=== PATIENT | male | born 1970 | race Two or more races ===

== ENCOUNTER 2022-02-07 13:49 | Emergency (ER) | payer MEDICAID ==
[~2022-02-07] VITALS: Ht 180.3 cm; Wt 73.9 kg
[~2022-02-07 13:49] MED LIST: AMLO-496 PO; COMIH INH; CYCL-839 PO; DIPH25TA54 PO; HYDR50TA69 PO; METF-370 PO; PRAV20TA3 PO; TRAM50TA2 PO; TRAZ100T3 PO
[2022-02-07] MEDS ORDERED: SODIUM CHLORIDE 0.9% 1,000 ML IV ONE (16:30)
[2022-02-07 16:59] LABS: Basophils # (auto) 0.1 10 ^3/uL (0-0.2); Basophils % (auto) 1.1 % (0.0-2.0); Eosinophils # (auto) 0.2 10 ^3/uL (0-0.8); Hematocrit 45.9 % (41.0-53.0); Hemoglobin 16.3 g/dL (13.5-17.5); Lymphocytes % (auto) 36.7 % (10.0-50.0); Mean Corpuscular Hemoglobin 30.9 pg (28.0-32.0); Mean Corpuscular Hgb Conc. 35.6 g/dL (32.0-36.0); Mean Corpuscular Volume 86.8 fL (80.0-100.0); Monocytes # (auto) 0.4 10 ^3/uL (0-1.3); Monocytes % (auto) 5.1 % (0.0-12.0); Neutrophils # (auto) 4.6 10 ^3/uL (1.6-8.6); Neutrophils % (auto) 55.1 % (37.0-80.0); Nucleated Red Blood Cells % 0.1 %; Red Blood Cells 5.29 10^6/uL (4.5-5.90); Red Cell Distribution Width 13.4 % (11.8-14.3); White Blood Cell 8.3 10^3/uL (4.4-10.8)
[2022-02-07 17:36] LABS: Albumin 3.8 g/dL (3.4-5.0); Potassium 4.3 mmol/L (3.5-5.1)
[2022-02-07 17:38] LABS: BUN/Creatinine Ratio 16.8
[2022-02-07 17:41] LABS: Bilirubin, Total 1.1 mg/dL (0.2-1.0); Total Protein 7.3 g/dL (6.4-8.2)
[2022-02-07] MEDS ORDERED: InsuLIN REG 1unit/0.01ml Soln (100units/ml) IV ONE (18:00)
[2022-02-07] MEDS ORDERED: OMNIPAQUE ORAL SOLN 500ml 12mg/ml PO ONE (18:20)
[2022-02-07] MEDS ORDERED: IOHEXOL 300 MG/ML 100ML BOTTLE IJ ONE (18:57)
[2022-02-07 20:51] LABS: Urine WBC None Seen /hpf (0 - 3)
[2022-02-07 21:05] LABS: Urine Bacteria NONE SEEN /hpf (None Seen); Urine Blood Negative /uL (Negative)
[2022-02-07 21:30] VITALS: BP 114/81
== END 2022-02-07 22:55 | disposition home or self-care (01) ==
LOC: ER 13:49
DX: K40.90 Unilateral inguinal hernia, without obstruction or gangrene, not specified as recurrent (principal); R10.30 Lower abdominal pain, unspecified; F17.210 Nicotine dependence, cigarettes, uncomplicated; F12.10 Cannabis abuse, uncomplicated; I12.9 Hypertensive chronic kidney disease with stage 1 through stage 4 chronic kidney disease, or unspecified chronic kidney disease; N18.9 Chronic kidney disease, unspecified; J44.9 Chronic obstructive pulmonary disease, unspecified; E78.5 Hyperlipidemia, unspecified; Z79.899 Other long term (current) drug therapy; Z88.6 Allergy status to analgesic agent
CPT/HCPCS: 36415; 74177; 76870; 80053; 81001; 83605; 85025; 96361; 96374; 99285; J1815; J7030; Q9967

== ENCOUNTER 2025-01-05 12:25 | Inpatient (IN) | payer MEDICAID, OTHER ==
[~2025-01-05] VITALS: Ht 180.3 cm; Wt 96.5 kg
[~2025-01-05 12:25] MED LIST changes: -AMLO-496 PO; +AMLO1TAB23 PO; +TRAZ-228 PO; -TRAZ100T3 PO
[2025-01-05 13:11] LABS: Basophils # (auto) 0 10 ^3/uL (0-0.2); Basophils % (auto) 0.5 % (0.0-2.0); Eosinophils # (auto) 0.1 10 ^3/uL (0-0.8); Hematocrit 47.1 % (41.0-53.0); Hemoglobin 16.5 g/dL (13.5-17.5); Lymphocytes # (auto) 2.6 10 ^3/uL (0.4-5.4); Mean Corpuscular Hemoglobin 32.3 pg (28.0-32.0); Mean Corpuscular Hgb Conc. 35.1 g/dL (32.0-36.0); Monocytes # (auto) 0.4 10 ^3/uL (0-1.3); Neutrophils % (auto) 55.5 % (37.0-80.0); Nucleated Red Blood Cells % 0.1 %; Platelet Count (auto) 199 10^3/uL (140-450); Red Blood Cells 5.11 10^6/uL (4.5-5.90); Red Cell Distribution Width 12.4 % (11.8-14.3); White Blood Cell 7.2 10^3/uL (4.4-10.8)
[2025-01-05 13:26] LABS: Chloride 104 mmol/L (98-107); Potassium 4.1 mmol/L (3.5-5.1); Sodium 141 mmol/L (136-145)
[2025-01-05 13:27] LABS: Anion Gap 8 (5-15); Carbon Dioxide 29 mmol/L (20-31)
[2025-01-05 13:29] LABS: Calcium 10.5 mg/dL (8.7-10.4)
[2025-01-05 13:32] LABS: BUN/Creatinine Ratio 11.4 (10.0-20.0); Blood Urea Nitrogen 13 mg/dL (9-23)
[2025-01-05 13:33] LABS: Glucose 225 mg/dL (74-106)
--- NOTE | 2025-01-05 13:40 | ED.PDOC ---
GI ASSESSMENT HPI Comments 54 y/o M, presents to the ED for CC of GI Bleed. Patient states, that he has been experiencing RLQ abdominal pain with associated dark stools, nausea, and cough x 4days. Patient relays, emesis to be coffee ground like in appearance. Patient comments on, having a bulge to the RLQ of his abdomen that extends when he coughs. Patient denies blood streaked bowels, hematemesis, fever, chills, body-aches, or fatigue. No other symptoms or modifying factors present at this time. Chief Complaint: GI Bleed Time Seen by MD: 13:20 Primary Care Provider: DR ASHRAF Reviewed Notes: Nurses Notes, Medications, Allergies Allergies: Coded Allergies: Codeine (Verified Allergy, Unknown, 04/18/18) Home Meds Reported Medications Cyclobenzaprine Hcl (Cyclobenzaprine Hcl) 10 Mg Tab, 10 MG PO PRN, TAB 04/18/18 Diphenhydramine Hcl (Benadryl Allergy) 25 Mg Tab, 50 MG PO PRN, TAB 04/18/18 Metformin Hydrochloride (Metformin Hcl) 500 Mg Tab, 850 MG PO BID, #60 TAB 3 Refills 09/29/14 Tramadol Hcl (Tramadol Hcl) 50 Mg Tab, 50 MG PO Q4HP PRN for SEVERE PAIN, TAB 09/29/14 Hydroxyzine Hcl (Hydroxyzine Hcl) 50 Mg Tab, 1 TAB PO TIDPRN PRN for FOR ITCHING, #90 TAB 2 Refills 09/29/14 Trazodone Hcl (Trazodone Hcl) 100 Mg Tab, 100 MG PO HSPRN PRN for FOR INSOMNIA, TAB 09/29/14 Pravastatin Sodium (PRAVACHOL TABLET) 20 Mg Tb, 1 TAB PO DAILY, #30 TAB 5 Refills 09/29/14 Amlodipine Besylate (Amlodipine Besylate) 10 Mg Tab, 10 MG PO DAILY, TAB 09/29/14 Ipratropium-Albuterol (COMBIVENT INHALER) 1 In Ih, 2 PUFF INH TID, #14.7 GRAMS 11 Refills 09/29/14 Information Source: Patient Mode of Arrival: Ambulatory Timing: Days Duration: Since onset Prehospital treatment: None Quality: None Vomitus: Watery Stool: Watery Severity: Moderate Recent: None Recent Hx of: None Pain Location: RLQ Modifying Factors: Nothing Associated sign and symptoms: Nausea, Vomiting, Melena, Abdominal Pain Past Medical History PAST MEDICAL HISTORY: Anemia, Anxiety, Cancer, CKF, COPD, Depression, Gallstones, GERD, High Lipids, HTN, Liver, Schizophrenia Family History Family History: No family hx of Cancer, No family hx of DM, No family hx of Heart anatoliy Social History Smoker: Cigarettes, Greater Than 1 Pack/Day Alcohol: Heavy Drugs: Marijuana Lives In: Home Constitutional: denies: chills, diaphoresis, fatigue, fever, malaise, sweats, weakness, others EENTM: denies: blurred vision, double vision, ear bleeding, ear discharge, ear drainage, ear pain, ear ringing, eye pain, eye redness, hearing loss, mouth pain, mouth swelling, nasal discharge, nose bleeding, nose congestion, nose pain, photophobia, tearing, throat pain, throat swelling, voice changes, others Respiratory: reports: cough; denies: hemoptysis, orthopnea, SOB at rest, shortness of breath, SOB with excertion, stridor, wheezing, others Cardiovascular: denies: chest pain, dizzy spells, diaphoresis, Dyspnea on exertion, edema, irregular heart beat, left arm pain, lightheadedness, palpitations, PND, syncope, others Gastrointestinal: reports: abdominal pain, melena, nausea, vomiting; denies: abdomen distended, blood streaked bowels, constipated, diarrhea, dysphagia, difficulty swallowing, hematemesis, poor appetite, poor fluid intake, rectal bleeding, rectal pain, others Genitourinary: denies: burning, dysuria, flank pain, frequency, hematuria, incontinence, penile discharge, penile sore, pain, testicle pain, testicle swelling, urgency, others Neurological: denies: dizziness, fainting, headache, left sided numbness, left sided weakness, numbness, paresthesia, pre-existing deficit, right sided numbness, right sided weakness, seizure, speech problems, tingling, tremors, weakness, others Musculoskeletal: denies: back pain, gout, joint pain, joint swelling, muscle pain, muscle stiffness, neck pain, others Integumetry: denies: bruises, change in color, change in hair/nails, dryness, laceration, lesions, lumps, rash, wounds, others Allergic/Immunocompromised: denies: Difficulty Healing, Frequent Infections, Hives, Itching, others Hematologic/Lymphatic: denies: anemia, blood clots, easy bleeding, easy bruising, swollen glands, others Endocrine: denies: excessive hunger, excessive sweating, excessive thirst, excessive urination, flushing, intolerance to cold, intolerance to heat, unexplained weight gain, unexplained weight loss, others Psychiatric: denies: anxiety, bipolar disorder, depression, hopeless, panic disorder, schizophrenia, sleepless, suicidal, others All Other Systems: Reviewed and Negative Physical Exam General Appearance: Moderate Distress HEENT: Normal ENT Inspection, Pharynx Normal, TMs Normal Neck: Full Range of Motion, Non-Tender, Normal, Normal Inspection Respiratory: Chest Non-Tender, Lungs Clear, No Accessory Muscle Use, No Respiratory Distress, Normal Breath Sounds Cardiovascular: No Edema, No JVD, No Murmur, No Gallop, Normal Peripheral Pulses, Regular Rate/Rhythm Breast Exam: Deferred Gastrointestinal: No Organomegaly, Non Tender, No Pulsatile Mass, Normal Bowel Sounds, Soft Genitalia: Deferred Pelvic: Deferred Rectal: Deferred Extremities: No calf tenderness, Normal capillary refill, Normal inspection, Normal range of motion, Non-tender, No pedal edema Musculoskeletal : Apperance: Normal Neurologic: Alert, filler picker II-XII nml as Tested, No Motor Deficits, Normal Affect, Normal Mood, No Sensory Deficits Cerebellar Function: NOT DONE Reflexes: NOT DONE Skin: Dry, Normal Color, Warm Peripheral Pulses: 3+ Radial (R), 3+ Radial (L) Lymphatic: No Adenopathy Was a procedure done? Was a procedure done?: No GI differential Dx Differential Diagnosis: Constipation, Diverticular disease, Esophagitis, Gastritis/PUD, Gastroenteritis, GI hemorrhage, Electrolyte Imbalance, Food Poisoning, Bacterial, Viral X-Ray, Labs, Meds, VS Vital Signs Date Time Temp Pulse Resp B/P (MAP) Pulse Ox O2 Delivery O2 Flow Rate FiO2 01/05/25 12:50 97.8 89 15 156/97 (116) 97 97.8 Lab Test 01/05/25 13:00 Range/Units White Blood Count 7.2 4.4-10.8 10^3/uL Red Blood Count 5.11 4.5-5.90 10^6/uL Hemoglobin 16.5 13.5-17.5 g/dL Hematocrit 47.1 41.0-53.0 % Mean Corpuscular Volume 92.0 80.0-100.0 fL Mean Corpuscular Hemoglobin 32.3 H 28.0-32.0 pg Mean Corpuscular Hemoglobin Concent 35.1 32.0-36.0 g/dL Red Cell Distribution Width 12.4 11.8-14.3 % Platelet Count 199 140-450 10^3/uL Mean Platelet Volume 7.9 6.9-10.8 fL Neutrophils (%) (Auto) 55.5 37.0-80.0 % Lymphocytes (%) (Auto) 36.0 10.0-50.0 % Monocytes (%) (Auto) 6.0 0.0-12.0 % Eosinophils (%) (Auto) 2.0 0.0-7.0 % Basophils (%) (Auto) 0.5 0.0-2.0 % Neutrophils # (Auto) 4.0 1.6-8.6 10 ^3/uL Lymphocytes # (Auto) 2.6 0.4-5.4 10 ^3/uL Monocytes # (Auto) 0.4 0-1.3 10 ^3/uL Eosinophils # (Auto) 0.1 0-0.8 10 ^3/uL Basophils # (Auto) 0 0-0.2 10 ^3/uL Nucleated Red Blood Cells 0.1 % Sodium Level 141 136-145 mmol/L Potassium Level 4.1 3.5-5.1 mmol/L Chloride Level 104 98-107 mmol/L Carbon Dioxide Level 29 20-31 mmol/L Anion Gap 8 5-15 Blood Urea Nitrogen 13 9-23 mg/dL Creatinine 1.14 0.700-1.30 mg/dL Glomerular Filtration Rate Calc 76 >90 mL/min BUN/Creatinine Ratio 11.4 10.0-20.0 Serum Glucose 225 H 74-106 mg/dL Calcium Level 10.5 H 8.7-10.4 mg/dL Patient alert. Complaining of dark stools. Possible gastritis. Vitals stable. Possibly will need colonoscopy. Blood sugar elevated pain Calcium elevated. Blood pressure elevated. History of psychiatric illness. Explained to the patient. Continue cardiac monitoring. Time of 1ST Reevaluation: 13:50 Reevaluation 1ST: Unchanged Patient Education/Counseling: Diagnosis, Treatment Family Education/Counseling: No Family Present Departure 1 Departure Time of Disposition: 14:36 Impression: Primary Impression: Uncontrolled diabetes mellitus Qualified Codes: E13.65 - Other specified diabetes mellitus with hyperglycemia Additional Impressions: Hypertensive urgency Hypercalcemia Disposition: ADMITTED INPATIENT Admit to: Med Surg Condition: Guarded Critical Care Note Critical Care Time?: No Stability Stability form required: No Heart Score Heart Score: Heart Score Response (Comments) Value History N/A 0 EKG N/A 0 Age N/A 0 Risk Factors N/A 0 Troponin N/A 0 Total 0 I personally scribed for LANDRY BOYER MD ([email or web address]) on 01/05/25 at 13:40. Electronically submitted by Zeynep Guillen ([email or web address]). LANDRY BOYER MD Jan 05, 2025 13:40
[2025-01-05] MEDS: PANTOPRAZOLE 40 MG/10 ML VIAL INJ IV ONE (15:23)
[2025-01-05 15:25] VITALS: RESP 18; O2SAT 98
--- NOTE | 2025-01-05 16:50 | DVH ---
Procedure: CT CT AB PEL WO CON-NO ORAL OR IV 01/05/2025 03:37 PM Indication: colitis Comparison Study: Scan dated 02/07/2022 Technique: Axial images were obtained and reformatted in coronal and sagittal planes. All CT scans at this medical facility are performed using dose modulation techniques as appropriate to a performed e xam including the following: Automated exposure control was utilized; adjustment of the MA and/or KV according to patient size; and use of iterative reconstruction technique. CT Dose: CTDI volume is 9.0 9 mGy. Dose-length product is 756.7 mGy*cm FINDINGS: Lower Chest: Unremarkable. Hepatobiliary: Gallbladder is surgically absent. No intrahepatic or extrahepatic ductal dilatation. N o focal hepatic lesion. No evidence of hepatic steatosis. Spleen: Mildly enlarged, 13.8 cm in AP. Pancreas: Unremarkable. Adrenal Glands: Unremarkable. tract: The kidneys are normal in size bilaterally without hydronephrosis or nephrolithiasis. Anter ior bladder wall thickening. Herniation of the right anterior bladder wall to the right inguinal mayank l. GI tract: A small sliding hiatal hernia noted. No evidence of small bowel obstruction. Mild circumfer ential mural thickening of the entire large bowel noted with without significant adjacent fat strandi ng. The appendix is normal. Lymphatics: No mesenteric, retroperitoneal or periportal lymphadenopathy. Vasculature: The abdominal aorta is normal in in caliber. Pelvic Organs: Unremarkable Bones/soft tissues: Moderate-sized, 6 x 5.5 x 4.2 cm right inguinal hernia measuring 2.6 cm at the ne ck containing fat, small amount of fluid and right anterior bladder wall. There is thickening of the adjacent bladder wall. Multilevel degenerative disc disease and facet arthropathy of the lumbar spin e noted. Other: None. IMPRESSION: 1. Findings compatible with mild colitis and proctitis. 2. Compared to CT scan of 2021, there has been mild interval enlargement of right inguinal hernia, ma inly containing fat, with a small amount of fluid right anterior wall of the urinary bladder. Anterio r bladder wall is thickened which is probably related to herniation. Recommend correlation with urina lysis to rule out cystitis. 3. Mild splenomegaly. 4. Small sliding hiatal hernia.
--- NOTE | 2025-01-05 17:11 | DVHHP2 ---
History of Present Illness Reason for Visit: GI bleed History of Present Illness 54-year-old male past medical history anemia anxiety cancer in the kidney in remission CK F COPD depression hypertension schizophrenia diabetes gallstones GERDs hyperlipidemia bipolar disorder chief complaint patient states that he had some coffee-ground emesis he had 2 times in today but in the last four days he has been having more frequent episodes of coffee-ground emesis. He denies any fever and he does complain of epigastric pain and right lower quadrant abdominal pain. Patient also states he had some diarrhea that was dark in color he was not concerned with it until he had the coffee-ground emesis. He denies any gil[address] [facility] pain no shortness with the breath no fever no tearing sensation in his abdomen. Patient did state that he had an EGD 10 years ago and it showed he had some GERDs he was on Nexium at that time he also had a eat colonoscopy November 17, 2024 he states no acute findings. When evaluating patient's labs and imaging Protonix was given CBC was unremarkable glucose was [address] scan of the abdomen pelvis shows cystitis splenomegaly hiatal hernia colitis proctitis. With these findings we will admit and ask for GI consult and place on IV antibiotics Past Medical History See HPI above Past Surgical History Denies surgical history Family History Reviewed, non-contributory to the management of this case. Past Social History Patient does smoke by history but denies drug or alcohol use Review of Systems Constitutional: No: Fever, Chills, Sweats, Weakness, Malaise, Other Eyes: No: Pain, Vision change, Conjunctivae inflammation, Eyelid inflammation, Other, Redness ENT: No: Ear pain, Ear discharge, Nose pain, Nose discharge, Nose congestion, Mouth pain, Mouth swelling, Throat pain, Throat swelling, Other Respiratory: No: Cough, Dry, Shortness of breath, SOB with excertion, Wheezing, Hemoptysis, Pleuritic Pain, Sputum, Wheezing, Other Cardiovascular: No: Chest Pain, Palpitations, Orthopnea, Paroxysmal Noc. Dyspnea, Edema, Lt Headedness, Other Gastrointestinal: Abdominal Pain, Melena, Other (The ground emesis); No: Nausea, Vomiting, Diarrhea, Constipation, Hematochezia Genitourinary: No Dysuria, No Frequency, No Incontinence, No Hematuria, No Retention, No Other Musculoskeletal: No: other, neck pain, shoulder pain, arm pain, back pain, hand pain, leg pain, foot pain Skin: No: Rash, Lesions, Jaundice, Bruising, Other Neurological: No: Weakness, Numbness, Incoordination, Change in speech, Confusion, Seizures, Other Allergies: Coded Allergies: Codeine (Verified Allergy, Unknown, 01/05/25) Exam Vital Signs Vital Signs Date Time Temp Pulse Resp B/P (MAP) Pulse Ox O2 Delivery O2 Flow Rate FiO2 01/05/25 15:25 18 98 Room Air* 0 21 01/05/25 15:21 87 01/05/25 15:21 98.2 117/89 (98) 98.2 General Appearance: Alert, Oriented X3, Cooperative, No acute distress HEENT: Atraumatic, PERRLA, EOMI, Mucous membr. moist/pink Respiratory: Clear to auscultation, Normal air movement Cardiovascular: Regular rate, Normal S1, Normal S2, No murmurs Abdominal: Normal bowel sounds, Soft, No hepatospenomegaly, No masses, Other (guarding and rebound tenderness to right lower quadrant of the abdomen) Extremities: No clubbing, No cyanosis, No edema, Normal pulses, No tendernes s/swelling Skin: No rashes, No breakdown, No significant lesion Neuro: Normal gait, Normal speech, Strength at 5/5 X4 ext, Normal tone, Sensation intact, Cranial nerves 3-12 NL Psych/Mental Status: Mental status NL, Mood NL Labs/Xrays CT scan of the abdomen pelvis shows colitis and proctitis and cystitis splenomegaly I reviewed labs, imaging CT scan abdomen pelvis, EKG and all diagnostic studies on this patient from ED records and the medical chart Labs Test 01/05/25 13:00 Range/Units White Blood Count 7.2 4.4-10.8 10^3/uL Red Blood Count 5.11 4.5-5.90 10^6/uL Hemoglobin 16.5 13.5-17.5 g/dL Hematocrit 47.1 41.0-53.0 % Mean Corpuscular Volume 92.0 80.0-100.0 fL Mean Corpuscular Hemoglobin 32.3 H 28.0-32.0 pg Mean Corpuscular Hemoglobin Concent 35.1 32.0-36.0 g/dL Red Cell Distribution Width 12.4 11.8-14.3 % Platelet Count 199 140-450 10^3/uL Mean Platelet Volume 7.9 6.9-10.8 fL Neutrophils (%) (Auto) 55.5 37.0-80.0 % Lymphocytes (%) (Auto) 36.0 10.0-50.0 % Monocytes (%) (Auto) 6.0 0.0-12.0 % Eosinophils (%) (Auto) 2.0 0.0-7.0 % Basophils (%) (Auto) 0.5 0.0-2.0 % Neutrophils # (Auto) 4.0 1.6-8.6 10 ^3/uL Lymphocytes # (Auto) 2.6 0.4-5.4 10 ^3/uL Monocytes # (Auto) 0.4 0-1.3 10 ^3/uL Eosinophils # (Auto) 0.1 0-0.8 10 ^3/uL Basophils # (Auto) 0 0-0.2 10 ^3/uL Nucleated Red Blood Cells 0.1 % Sodium Level 141 136-145 mmol/L Potassium Level 4.1 3.5-5.1 mmol/L Chloride Level 104 98-107 mmol/L Carbon Dioxide Level 29 20-31 mmol/L Anion Gap 8 5-15 Blood Urea Nitrogen 13 9-23 mg/dL Creatinine 1.14 0.700-1.30 mg/dL Glomerular Filtration Rate Calc 76 >90 mL/min BUN/Creatinine Ratio 11.4 10.0-20.0 Serum Glucose 225 H 74-106 mg/dL Calcium Level 10.5 H 8.7-10.4 mg/dL Assessment/Plan Assessment/Plan acute upper and lower gi bleed ct scan found to have colitis/proctitis ordered Protonix drip ordered ivf npo gi consult fu results Order Ceftriaxone and Rocephin acute colitis/proctitis found ct scan ordered ceftriaxone and Flagyl ordered Protonix Acute splenomegaly GI consult follow up results Acute Cystitis Order ceftriaxone Order UA follow up results Acute hiatal hernia GI consult follow up results Protonix for now unControlled dm type 2 without dka ISS rounding team to order hemoglobin a1c Tobacco dependence Nicotine patch for now i counseled the patient for 6 min about smoking suggestions pt accepted nicotine patch and tobacco education smoking code 60345 chronic problems chronic anemia anxiety cancer copd depression htn liver schizophrenia gerds hld fen/ppx npo ivf protonix scd no dvt ppx since no hx of gerds or gi bleed plan admit to medicine gi consult fu recs Plan discussed with: Patient Date of Service: Jan 05, 2025 Billing Provider: BOB GARCÍA DNP Common Visit Codes: [id number] INP/OBS CARE (HIGH) BOB GARCÍA DNP Jan 05, 2025 17:11
[2025-01-05] MEDS ORDERED: NITROGLYCERIN 0.4 MG SL TAB SL PRN (18:45)
[2025-01-05] MEDS ORDERED: LORazepam 2MG/ML-1ML VIAL IV PRN (18:45)
[2025-01-05] MEDS ORDERED: DOCUSATE SOD 100 MG CAP PO PRN (18:45)
[2025-01-05] MEDS ORDERED: MORPHINE SULFATE INJ 2 MG/ml SYRG IV PRN (18:45)
[2025-01-05] MEDS ORDERED: DEXTROSE (50%) 50ML SYRG IV PRN (19:00)
[2025-01-06] MEDS ORDERED: metroNIDAZOLE 500MG/100ML 100 ML IV SCH ×2 (02:00→12:00)
[2025-01-06] MEDS: PANTOPRAZOLE 40mg/50ML NS AE 50 ML IV SCH (03:58)
[2025-01-06] MEDS ORDERED: ATOR40TA52 PO (04:09)
[2025-01-06] MEDS ORDERED: MELA3TAB27 PO (04:09)
[2025-01-06] MEDS ORDERED: ARIP2TAB PO (04:09)
[2025-01-06] MEDS ORDERED: DIVA-91 PO (04:09)
[2025-01-06] MEDS ORDERED: PANT40TA2 PO (04:09)
[2025-01-06] MEDS: SODIUM CHLORIDE 0.9% 1,000 ML IV SCH ×2 (04:11→15:43)
[2025-01-06] MEDS: NICOTINE 21MG/24 HR TOPICAL PATCH TD ONE (04:24)
[2025-01-06] MEDS: cefTRIAXone 1GM/50ML D5W 50 ML IV ONE (04:24)
[2025-01-06] MEDS: metroNIDAZOLE 500MG/100ML 100 ML IV ONE (04:29)
[2025-01-06] MEDS: ACCU-CHEK COMFORT CURVE STRIP VI SCH (05:08)
[2025-01-06] MEDS: InsuLIN REG 1unit/0.01ml Soln (100units/ml) SC SCH (05:08)
[2025-01-06 07:33] LABS: Alanine Aminotransferase 19 U/L (7-40); Alkaline Phosphatase 57 U/L (46-116); Anion Gap 11 (5-15); Calcium 9.8 mg/dL (8.7-10.4); Carbon Dioxide 27 mmol/L (20-31); Chloride 103 mmol/L (98-107); Potassium 3.8 mmol/L (3.5-5.1); Sodium 141 mmol/L (136-145); Total Protein 7.2 g/dL (5.7-8.2)
[2025-01-06 07:34] LABS: Aspartate Aminotransferase 15 U/L (13-40)
[2025-01-06 07:38] LABS: Bilirubin, Total 1.5 mg/dL (0.2-1.0); Glucose 153 mg/dL (74-106)
[2025-01-06 07:57] LABS: BUN/Creatinine Ratio 12.2 (10.0-20.0)
[2025-01-06] MEDS: ONDANSETRON HCL 4 MG/2 ML VIAL IV PRN (08:02)
[2025-01-06 08:04] LABS: Blood Urea Nitrogen 12 mg/dL (9-23)
[2025-01-06 08:16] LABS: Basophils # (auto) 0.1 10 ^3/uL (0-0.2); Basophils % (auto) 1.3 % (0.0-2.0); Eosinophils # (auto) 0.2 10 ^3/uL (0-0.8); Hematocrit 47.8 % (41.0-53.0); Hemoglobin 16.5 g/dL (13.5-17.5); Lymphocytes # (auto) 2.3 10 ^3/uL (0.4-5.4); Lymphocytes % (auto) 37.2 % (10.0-50.0); Mean Corpuscular Hgb Conc. 34.5 g/dL (32.0-36.0); Mean Corpuscular Volume 92.7 fL (80.0-100.0); Monocytes # (auto) 0.4 10 ^3/uL (0-1.3); Monocytes % (auto) 5.9 % (0.0-12.0); Neutrophils # (auto) 3.2 10 ^3/uL (1.6-8.6); Neutrophils % (auto) 51.6 % (37.0-80.0); Nucleated Red Blood Cells % 0.4 %; Platelet Count (auto) 174 10^3/uL (140-450); Red Blood Cells 5.15 10^6/uL (4.5-5.90); Red Cell Distribution Width 12.6 % (11.8-14.3); White Blood Cell 6.3 10^3/uL (4.4-10.8)
[2025-01-06 09:00] VITALS: BP 124/76; PULSE 74; RESP 16; TEMP 98.6; O2SAT 98
[2025-01-06] MEDS: cefTRIAXone 1GM/50ML D5W 50 ML IV SCH (09:16)
[2025-01-06] MEDS: NICOTINE 21MG/24 HR TOPICAL PATCH TD SCH (10:00)
--- NOTE | 2025-01-06 12:29 | DVHINCON2 ---
GI Consult Consult Note GI consult note Date of Consultation: 01/06/2025 Chief Complaint: Acute upper and lower GI bleed, colitis, proctitis Referring Physician: Fabian LR H&P: 54-year-old male presented to ER with symptoms of nausea and vomiting, throwing up coffee-ground emesis, for the last four days, last episode of vomiting was yesterday. Patient is still complains of nausea. Zofran helping. Patient complains of right side abdominal pain. Patient has history of GERD. No active symptoms at this time. Does not take any PPIs Patient also complains of diarrhea, loose stool mostly in the a.m., watery. No blood in stool. Admits to noticing dark stool for the last few days Status post EGD more than 10 years ago, diagnosed with gastritis Status post colonoscopy 11/17/2024 WNL per patient Past Medical History: anemia anxiety cancer in the kidney in remission CK F COPD depression hypertension schizophrenia diabetes gallstones GERDs hyperlipidemia bipolar disorder Past Surgical History: Cholecystectomy Social History: Smoker: Cigarettes, Greater Than 1 Pack/Day Alcohol: Heavy Drugs: Marijuana Lives In: Home Family History: Noncontributory Review of Systems: Constitutional: no fever, chill, weight loss HEENT: no eye pain, no hearing loss, no oral lesion, no scleral icterus Heart: no chest pain, no chest pressure Lung: no cough, no dyspnea with exertion Abdomen: see HPI Physical exam: General: NAD, AAOX3 Chest: lung hernandez clear to auscultation Heart: RRR, no murmur Abdomen: non-distended, [id number] right side tenderness to palpation, +BS Labs: Labs Test 01/06/25 11:53 01/06/25 06:48 Range/Units POC Glucose 182 H 70-106 mg/dl White Blood Count 6.3 4.4-10.8 10^3/uL Red Blood Count 5.15 4.5-5.90 10^6/uL Hemoglobin 16.5 13.5-17.5 g/dL Hematocrit 47.8 41.0-53.0 % Mean Corpuscular Volume 92.7 80.0-100.0 fL Mean Corpuscular Hemoglobin 32.0 28.0-32.0 pg Mean Corpuscular Hemoglobin Concent 34.5 32.0-36.0 g/dL Red Cell Distribution Width 12.6 11.8-14.3 % Platelet Count 174 140-450 10^3/uL Mean Platelet Volume 8.8 6.9-10.8 fL Neutrophils (%) (Auto) 51.6 37.0-80.0 % Lymphocytes (%) (Auto) 37.2 10.0-50.0 % Monocytes (%) (Auto) 5.9 0.0-12.0 % Eosinophils (%) (Auto) 4.0 0.0-7.0 % Basophils (%) (Auto) 1.3 0.0-2.0 % Neutrophils # (Auto) 3.2 1.6-8.6 10 ^3/uL Lymphocytes # (Auto) 2.3 0.4-5.4 10 ^3/uL Monocytes # (Auto) 0.4 0-1.3 10 ^3/uL Eosinophils # (Auto) 0.2 0-0.8 10 ^3/uL Basophils # (Auto) 0.1 0-0.2 10 ^3/uL Nucleated Red Blood Cells 0.4 % Sodium Level 141 136-145 mmol/L Potassium Level 3.8 3.5-5.1 mmol/L Chloride Level 103 98-107 mmol/L Carbon Dioxide Level 27 20-31 mmol/L Anion Gap 11 5-15 Blood Urea Nitrogen 12 9-23 mg/dL Creatinine 0.98 0.700-1.30 mg/dL Glomerular Filtration Rate Calc 92 >90 mL/min BUN/Creatinine Ratio 12.2 10.0-20.0 Serum Glucose 153 H 74-106 mg/dL Calcium Level 9.8 8.7-10.4 mg/dL Total Bilirubin 1.5 H 0.2-1.0 mg/dL Aspartate Amino Transferase (AST) 15 13-40 U/L Alanine Aminotransferase (ALT) 19 7-40 U/L Alkaline Phosphatase 57 46-116 U/L Total Protein 7.2 5.7-8.2 g/dL Albumin 5.0 H 3.2-4.8 g/dL Imaging: CT abdomen pelvis IMPRESSION: 1. Findings compatible with mild colitis and proctitis. 2. Compared to CT scan of 2021, there has been mild interval enlargement of right inguinal hernia, mainly containing fat, with a small amount of fluid right anterior wall of the urinary bladder. Anterior bladder wall is thickened which is probably related to herniation. Recommend correlation with urinalysis to rule out cystitis. 3. Mild splenomegaly. 4. Small sliding hiatal hernia. Assessment: GI bleed Abdominal pain Colitis Hiatal hernia History of GERD Plan: Discussed with Dr. Marc Monitor lab Protonix and Zofran Clear liquid diet If symptoms of hematemesis persists possible plan for EGD in 24-48 hours discussed with patient Discussed plan with patient and RN Thank you for this consult Date of Service: Jan 06, 2025 Billing Provider: ANAID JACK Common Visit Codes: CONSULT ONLY Consultation Codes: [id number] CONSULT <60MIN ANAID JACK Jan 06, 2025 12:29
[2025-01-06 13:00] VITALS: BP 125/75; PULSE 74; RESP 18; TEMP 97.9; O2SAT 96
[2025-01-06] MEDS: metroNIDAZOLE 500MG/100ML 100 ML IV SCH (15:43)
[2025-01-06 16:00] VITALS: RESP 18
--- NOTE | 2025-01-06 16:13 | DVHPN2 ---
Subjective Reports having some right lower quadrant abdominal pain. Reviewed: Care Plan, H&P, Labs, Medications Changes from previous H/P or p: No Changes General: Per HPI Eyes: No Pain, No Vision change, No Conjunctivae inflammation, No Eyelid inflammation, No Other, No Redness ENT: No Ear pain, No Ear discharge, No Nose pain, No Nose discharge, No Nose congestion, No Mouth pain, No Mouth swelling, No Throat pain, No Throat swelling, No Other Cardiovascular: No Chest Pain, No Palpitations, No Orthopnea, No Paroxysmal Noc. Dyspnea, No Edema, No Lt Headedness, No Other Respiratory: No Cough, No Dry, No Shortness of breath, No SOB with excertion, No Wheezing, No Hemoptysis, No Pleuritic Pain, No Sputum, No Other Gastrointestinal: No Nausea, No Vomiting; Abdominal Pain; No Diarrhea, No Constipation; Melena; No Hematochezia; Other (The ground emesis) Genitourinary: No Dysuria, No Frequency, No Incontinence, No Hematuria, No Retention, No Other Musculoskeletal: No other, No neck pain, No shoulder pain, No arm pain, No back pain, No hand pain, No leg pain, No foot pain Skin: No Rash, No Lesions, No Jaundice, No Bruising, No Other Objective Vitals Vital Signs Date Time Temp Pulse Resp B/P (MAP) Pulse Ox O2 Delivery O2 Flow Rate FiO2 01/06/25 13:00 97.9 74 18 125/75 (92) 96 97.9 01/06/25 08:00 Room Air* 0 21 Intake/Output Intake and Output 01/06/25 07:00 Intake Total 150 ml Balance 150 ml Intake IV Total 150 ml General Appearance: Alert, Oriented X3, Cooperative, mild distress HEENT: Atraumatic, PERRLA Neck: Carotid [place] Lungs: Clear to auscultation, Normal air movement Cardiovascular: Normal S1, Normal S2 Abdomen: Normal bowel sounds Genitourinary: No Apparent Abnormalities Musculoskeletal: Normal sensory function, Normal motor function Neuro: Normal gait, Normal speech Psych/Mental Status: Mental status NL, Mood NL Medications Current Medications Medications Dose Ordered Sig/Lili Route Start Time Stop Time Status Last Admin Dose Admin Ondansetron HCl 4 mg Q4HP PRN IV 01/05/25 18:45 01/06/25 08:02 4 MG Docusate Sodium 100 mg BIDPRN PRN PO 01/05/25 18:45 Morphine Sulfate 2 mg Q4HPRN PRN IV 01/05/25 18:45 Nitroglycerin 0.4 mg Q5MINP PRN SL 01/05/25 18:45 Ceftriaxone Sodium 50 ml @ 100 mls/hr DAILY@09 IV 01/06/25 09:00 01/06/25 09:16 100 MLS/HR Nicotine 1 patch DAILY TD 01/06/25 10:00 Pantoprazole Sodium 50 ml @ 10 mls/hr Q5H IV 01/05/25 18:45 01/06/25 15:43 10 MLS/HR Lorazepam 0.5 mg Q6HP PRN IV 01/05/25 18:45 Hydralazine HCl 10 mg Q6HP PRN IV 01/05/25 18:45 Diagnostic Test (Pha) 1 strip Q6HR 01/06/25 00:00 01/06/25 12:00 1 STRIP Insulin Human Regular Q6HR SC 01/06/25 00:00 Dextrose 50 ml UD PRN IV 01/05/25 19:00 Metronidazole 100 ml @ 100 mls/hr Q8HR IV 01/06/25 14:00 01/06/25 15:43 100 MLS/HR Sodium Chloride 1,000 ml @ 75 mls/hr [id number] IV 01/06/25 15:15 01/06/25 15:43 75 MLS/HR Laboratory Results Laboratory Tests 01/06/25 06:48 Chemistry Test 01/06/25 06:48 Albumin 5.0 g/dL (3.2-4.8) H Calcium Level 9.8 mg/dL (8.7-10.4) Total Protein 7.2 g/dL (5.7-8.2) LFT Test 01/06/25 06:48 Alanine Aminotransferase (ALT) 19 U/L (7-40) Alkaline Phosphatase 57 U/L (46-116) Aspartate Amino Transferase (AST) 15 U/L (13-40) Total Bilirubin 1.5 mg/dL (0.2-1.0) H Labs and/or images reviewed: Labs reviewed by me, Image(s) reviewed by me Assessment/Plan Assessment/Plan Impression: -rule out GI bleed -colitis/proctitis -inguinal and ventral hernia -schizophrenia -nicotine dependence Plan: -restart Depakote, restart Abilify once patient brings in home medication -GI consultation: Recommendations reviewed -continue clear liquid diet -pain management -IV hydration -continue antibiotic therapy with Rocephin and Flagyl -repeat labs in a.m. -Lifestyle modification education: 10 minutes spent with the patient on any to decrease or stop smoking. Total time spent with patient discussing and formulating plan of care: 35 minutes. This medical document was created using an electronic medical record system with [employer] dictation system. Although this document has been carefully reviewed, there may still be some phonetic and typographical errors. These areas are purely typographical due to imperfections of the software programs, and do not reflect any compromise in the patient's medical care. Plan discussed with: Patient, Other (RN) My Orders Orders - KATEY MEMBRENO NP Procedure Category Date Status Time Sodium Chloride 0.9% PHA 01/06/25 In Process 15:[address] Tablet PHA 01/06/25 Verified (Depakote "Dr" Tabl 22:00 Comprehensive LAB 01/07/25 Verified Metabolic Panel 04:00 Complete Blood Count LAB 01/07/25 Verified 04:00 Date of Service: Jan 06, 2025 Billing Provider: KATEY MEMBRENO NP Common Visit Codes: [id number] INP/OBS CARE(HIGH) Secondary Visit Codes: [id number] CHNG SMOKING >10MIN KATEY MEMBRENO NP Jan 06, 2025 16:13
[2025-01-06 17:00] VITALS: BP 132/72; PULSE 71; RESP 18; TEMP 98.2; O2SAT 98
[2025-01-06 21:00] VITALS: BP 157/70; PULSE 70; RESP 17; RESP 7; TEMP 98; O2SAT 96
[2025-01-06] MEDS: hydrALAZINE HCL 20 MG/ML VL IV PRN (21:19)
[2025-01-06 23:54] LABS: Urine Bacteria None Seen /hpf (None Seen)
[2025-01-07 00:22] LABS: Urine Blood Negative /uL (Negative); Urine Clarity Clear (Clear); Urine Color Yellow (Yellow); Urine Protein, UAD Negative (Negative); Urine Specific Gravity 1.015 (1.001-1.035); Urine Squamous Epithelial Cell None Seen /hpf (<5); Urine Urobilinogen 2 mg/dL (Negative); Urine WBC 1 /HPF (0-3); Urine pH 6.5 (5.0-9.0)
[2025-01-07 01:00] VITALS: BP 117/67; PULSE 74; RESP 18; TEMP 98.4; O2SAT 96
[2025-01-07 05:00] VITALS: BP 111/68; PULSE 66; RESP 18; TEMP 98; O2SAT 95
[2025-01-07 06:54] LABS: Alanine Aminotransferase 16 U/L (7-40); Albumin 4.3 g/dL (3.2-4.8); Alkaline Phosphatase 49 U/L (46-116); Anion Gap 9 (5-15); Aspartate Aminotransferase 15 U/L (13-40); BUN/Creatinine Ratio 8.3 (10.0-20.0); Calcium 9.2 mg/dL (8.7-10.4); Carbon Dioxide 23 mmol/L (20-31); Potassium 3.8 mmol/L (3.5-5.1); Sodium 141 mmol/L (136-145); Total Protein 6.2 g/dL (5.7-8.2)
[2025-01-07 06:58] LABS: Bilirubin, Total 1.6 mg/dL (0.2-1.0); Blood Urea Nitrogen 8 mg/dL (9-23); Chloride 109 mmol/L (98-107); Glucose 141 mg/dL (74-106)
[2025-01-07 07:20] LABS: Basophils # (auto) 0 10 ^3/uL (0-0.2); Basophils % (auto) 0.7 % (0.0-2.0); Eosinophils # (auto) 0.3 10 ^3/uL (0-0.8); Eosinophils % (auto) 4.1 % (0.0-7.0); Hematocrit 46.8 % (41.0-53.0); Lymphocytes # (auto) 2.6 10 ^3/uL (0.4-5.4); Lymphocytes % (auto) 42.9 % (10.0-50.0); Mean Corpuscular Hemoglobin 31.7 pg (28.0-32.0); Mean Corpuscular Hgb Conc. 34.2 g/dL (32.0-36.0); Mean Corpuscular Volume 92.7 fL (80.0-100.0); Monocytes # (auto) 0.3 10 ^3/uL (0-1.3); Monocytes % (auto) 5.7 % (0.0-12.0); Neutrophils # (auto) 2.9 10 ^3/uL (1.6-8.6); Neutrophils % (auto) 46.6 % (37.0-80.0); Nucleated Red Blood Cells % 0.5 %; Platelet Count (auto) 184 10^3/uL (140-450); Red Blood Cells 5.05 10^6/uL (4.5-5.90); Red Cell Distribution Width 12.8 % (11.8-14.3); White Blood Cell 6.1 10^3/uL (4.4-10.8)
[2025-01-07 09:00] VITALS: BP 139/78; PULSE 74; RESP 18; TEMP 97.7; O2SAT 98
[2025-01-07] MEDS ORDERED: METR-344 PO (09:49)
[2025-01-07] MEDS ORDERED: LEVO500T91 PO (09:49)
--- NOTE | 2025-01-07 11:00 | DVHDS2 ---
Discharge Summary Date of Admission Jan 05, 2025 at 18:39 Date of Discharge: Jan 07, 2025 Admitting Diagnosis Acute colitis Labs/Diagnostic Data: Laboratory Results Test 01/07/25 06:16 01/07/25 06:05 01/06/25 23:18 POC Glucose 146 mg/dl (70-106) White Blood Count 6.1 10^3/uL (4.4-10.8) Red Blood Count 5.05 10^6/uL (4.5-5.90) Hemoglobin 16.0 g/dL (13.5-17.5) Hematocrit 46.8 % (41.0-53.0) Mean Corpuscular Volume 92.7 fL (80.0-100.0) Mean Corpuscular Hemoglobin 31.7 pg (28.0-32.0) Mean Corpuscular Hemoglobin Concent 34.2 g/dL (32.0-36.0) Red Cell Distribution Width 12.8 % (11.8-14.3) Platelet Count 184 10^3/uL (140-450) Mean Platelet Volume 8.3 fL (6.9-10.8) Neutrophils (%) (Auto) 46.6 % (37.0-80.0) Lymphocytes (%) (Auto) 42.9 % (10.0-50.0) Monocytes (%) (Auto) 5.7 % (0.0-12.0) Eosinophils (%) (Auto) 4.1 % (0.0-7.0) Basophils (%) (Auto) 0.7 % (0.0-2.0) Neutrophils # (Auto) 2.9 10 ^3/uL (1.6-8.6) Lymphocytes # (Auto) 2.6 10 ^3/uL (0.4-5.4) Monocytes # (Auto) 0.3 10 ^3/uL (0-1.3) Eosinophils # (Auto) 0.3 10 ^3/uL (0-0.8) Basophils # (Auto) 0 10 ^3/uL (0-0.2) Nucleated Red Blood Cells 0.5 % Sodium Level 141 mmol/L (136-145) Potassium Level 3.8 mmol/L (3.5-5.1) Chloride Level 109 mmol/L (98-107) Carbon Dioxide Level 23 mmol/L (20-31) Anion Gap 9 (5-15) Blood Urea Nitrogen 8 mg/dL (9-23) Creatinine 0.96 mg/dL (0.700-1.30) Glomerular Filtration Rate Calc 94 mL/min (>90) BUN/Creatinine Ratio 8.3 (10.0-20.0) Serum Glucose 141 mg/dL (74-106) Calcium Level 9.2 mg/dL (8.7-10.4) Total Bilirubin 1.6 mg/dL (0.2-1.0) Aspartate Amino Transferase (AST) 15 U/L (13-40) Alanine Aminotransferase (ALT) 16 U/L (7-40) Alkaline Phosphatase 49 U/L (46-116) Total Protein 6.2 g/dL (5.7-8.2) Albumin 4.3 g/dL (3.2-4.8) Urine Color Yellow (Yellow) Urine Clarity Clear (Clear) Urine pH 6.5 (5.0-9.0) Urine Specific [place] 1.015 (1.001-1.035) Urine Protein Negative (Negative) Urine Ketones 1+ (Negative) Urine Blood Negative /uL (Negative) Urine Nitrite Negative (Negative) Urine Bilirubin Negative (Negative) Urine Urobilinogen 2 mg/dL (Negative) Urine Leukocyte Esterase Negative /uL (Negative) Urine RBC <1 /hpf (0 - 3) Urine Microscopic WBC 1 /HPF (0-3) Urine Squamous Epithelial Cells None seen /hpf (<5) Urine Bacteria None seen /hpf (None Seen) Urine Glucose Normal mg/dL (Normal) Other Laboratory Tests 01/07/25 06:05 Brief Hx & Hospital Course: History of Present Illness 54-year-old male past medical history anemia anxiety cancer in the kidney in remission CK F COPD depression hypertension schizophrenia diabetes gallstones GERDs hyperlipidemia bipolar disorder chief complaint patient states that he had some coffee-ground emesis he had 2 times in today but in the last four days he has been having more frequent episodes of coffee-ground emesis. He denies any fever and he does complain of epigastric pain and right lower quadrant abdominal pain. Patient also states he had some diarrhea that was dark in color he was not concerned with it until he had the coffee-ground emesis. He denies any chest pain no shortness with the breath no fever no tearing sensation in his abdomen. Patient did state that he had an EGD 10 years ago and it showed he had some GERDs he was on Nexium at that time he also had a eat colonoscopy November 17, 2024 he states no acute findings. When evaluating patient's labs and imaging Protonix was given CBC was unremarkable glucose was [address] scan of the abdomen pelvis shows cystitis splenomegaly hiatal hernia colitis proctitis. With these findings we will admit and ask for GI consult and place on IV antibiotics. Course of hospitalization: Patient was treated with IV Rocephin and Flagyl. Patient was home medications were reconciled with some medications restarted that were on formulary. Patient was also continued on PPI. GI consultation was obtained. Patient was states that his abdominal pain has resolved today. He states he was able to tolerate oral intake without any issues. Repeat CBC reveals no drop in H&H, as well as the patient having no leukocytosis. Patient was requesting to be discharged home. He will be continued on antibiotic therapy with both Levaquin and Flagyl. He was to continue taken PPI that was previously prescribed as well as other home medications. Patient was also instructed on the need to consider decreasing or omitting smoking from his lifestyle. At this time he we will continue to smoke as he was done so while in the hospital. Physical exam General: Alert and Oriented x3. No acute distress. Well-nourished. Eyes: EOMI. Anicteric. HENT: Moist mucous membranes. Lungs: Clear to auscultation bilaterally. No accessory muscle use. Cardiovascular: Regular rate and rhythm. No murmur. No JVD. Abdomen: Soft, non-tender and non-distended. No palpable masses. Extremities: No edema. Non-tender. Skin: No rashes or lesions. Warm. Neurologic: No focal neurological deficits. CN II-XII grossly intact, but not individually tested. Psychiatric: Cooperative. Appropriate mood and affect. Total time spent with patient discussing and formulating plan of care: 35 minutes. Advance care plannin minutes spent with the patient on the need to change diet and stop smoking. This medical document was created using an electronic medical record system with [employer]pipeation system. Although this document has been carefully reviewed, there may still be some phonetic and typographical errors. These areas are purely typographical due to imperfections of the software programs, and do not reflect any compromise in the patient's medical care. Consults/Reason for consult Gastroenterology: Questionable GI bleed Condition at Discharge: Fair Final Diagnosis/Problems List Colitis/ Proctitis Secondary diagnosis: -ruled out GI bleed -colitis/proctitis -inguinal and ventral hernia -schizophrenia -nicotine dependence Discharge Disposition: Home Discharge Instruct/Medications Diet: Cardiac 2g Na,low cholest Activity: No Restrictions, As Tolerated Follow Up/Referral: PCP in 1-2 weeks Medications: Levaquin 500mg po Daily x 5 days Flagyl 500mg po TID x 5 days continue home medications including protonix 36 Discharge Statement: "Patient was advised to return to the ER or call 911 if any headaches, dizziness, shortness of breath, chest pain, abdominal pain, bleeding, fevers, or worsening of medical condition. Patient was counseled about treatment plan, medications, possible side effects, patientverbalized understanding. All questions were answered to the best of my ability. This discharge took greater then 30 minutes in planning, reviewing documentation, counseling the patient, and discussing with other team members." ASSESSMENT ASSESSMENT Assessment Colitis/ Proctitis Date of Service: Jan 07, 2025 Billing Provider: KATEY MEMBRENO NP Common Visit Codes: [id number] INP/OBS CARE(HIGH) KATEY MEMBRENO NP Jan 07, 2025 11:00
== END 2025-01-07 12:30 | disposition home or self-care (01) | DRG 392 ==
LOC: ER 12:28 → OVERFLOW 18:39 → EAST 01-06 16:27
PROVIDERS: ADMIT Nurse Practitioner Acute Care; ATTEND Nurse Practitioner Acute Care
DX: K52.9 Noninfective gastroenteritis and colitis, unspecified (principal); N30.00 Acute cystitis without hematuria; K43.9 Ventral hernia without obstruction or gangrene; K44.9 Diaphragmatic hernia without obstruction or gangrene; K62.89 Other specified diseases of anus and rectum; F20.9 Schizophrenia, unspecified; K40.90 Unilateral inguinal hernia, without obstruction or gangrene, not specified as recurrent; I16.0 Hypertensive urgency; E83.52 Hypercalcemia; F17.210 Nicotine dependence, cigarettes, uncomplicated; K21.9 Gastro-esophageal reflux disease without esophagitis; E11.9 Type 2 diabetes mellitus without complications; F41.9 Anxiety disorder, unspecified; J44.9 Chronic obstructive pulmonary disease, unspecified; F31.9 Bipolar disorder, unspecified; E78.5 Hyperlipidemia, unspecified; Z88.5 Allergy status to narcotic agent; Z79.84 Long term (current) use of oral hypoglycemic drugs; Z79.899 Other long term (current) drug therapy; Z90.49 Acquired absence of other specified parts of digestive tract
CPT/HCPCS: 36415; 74176; 80048; 80053; 81001; 82962; 85025; 96365; 96366; 96368; 96375; G0378; J1815; J2405; J2470; J3490

== ENCOUNTER 2025-08-06 13:06 | Emergency (ER) | payer OTHER ==
[~2025-08-06] VITALS: Ht 180.3 cm; Wt 87.7 kg
[~2025-08-06 13:06] MED LIST changes: -AMLO1TAB23 PO; +ARIP2TAB PO; +ATOR40TA52 PO; -COMIH INH; -CYCL-839 PO; -DIPH25TA54 PO; +DIVA-91 PO; -HYDR50TA69 PO; +LEVO500T91 PO; +MELA3TAB27 PO; -METF-370 PO; +METR-344 PO; +PANT40TA2 PO; -PRAV20TA3 PO; -TRAM50TA2 PO; -TRAZ-228 PO
[2025-08-06 13:09] VITALS: TEMP 98.4
--- NOTE | 2025-08-06 13:18 | ECG ---
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
--- NOTE | 2025-08-06 13:39 | ED.PDOC ---
Back pain HPI HPI Comments A 55 YEAR OLD MALE PRESENTS TO THE ED WITH COMPLAINT OF NECK PAIN THAT RADIATES TO LEFT UPPER CHEST, LEFT UPPER BACK AND DOWN LEFT ARM. PATIENT STATES HE HAS BEEN EXPERIENCING NECK PAIN THAT RADIATES TO HIS LEFT SHOULDER, LEFT UPPER CHEST, LEFT UPPER BACK, AND DOWN HIS LEFT ARM OFF AND ON FOR THE PAST 2 MONTHS. PATIENT REPORTS HE BEGAN TO EXPERIENCING NUMBNESS/TINGLING SENSATION IN HIS LEFT ARM A RESULT OF HIS PAIN 2 WEEKS AGO AND NOTES HIS SYMPTOMS WORSENED LAST NIGHT. PATIENT NOTES HE HAS A HISTORY OF CERVICAL FUSION AND CHRONIC NECK PAIN, BUT IS NOT SURE IF THIS IS WHAT IS CURRENTLY CAUSING HIS SYMPTOMS. PATIENT DENIES FEVER, CHILLS, SHORTNESS OF BREATH, CHEST PAIN, ABDOMINAL PAIN, NAUSEA, VOMITING, HEADACHE, OR OTHER COMPLAINTS. NO OTHER SYMPTOMS OR MODIFYING FACTORS AT THIS TIME. PATIENT IS ALERT, ORIENTED X 4, AND HAS STEADY GAIT. Chief Complaint: Upper Extremity Time Seen by MD: 13:12 Primary Care Provider: DR ASHRAF Reviewed Notes: Nurses Notes, Medications, Allergies Allergies: Coded Allergies: NO KNOWN ALLERGIES (Unverified , 01/06/25) Home Meds Active Scripts Prednisone (Prednisone) 20 Mg Tab, 40 MG PO DAILY, #20 TAB Prov:LEATHA CLAYTON 08/06/25 Tramadol HCl (Tramadol HCl) 50 Mg Tab, 50 MG PO TID, #24 TAB Prov:LEATHA CLAYTON 08/06/25 Metronidazole (Flagyl) 500 Mg Tab, 1 TAB PO TID for 5 Days, #15 TAB Prov:KATEY MEMBRENO DIRECTOR EMERGENCY SERVICES 01/07/25 Levofloxacin Hemihydrate (LEVAQUIN 500 MG) 500 Mg Tab, 1 TAB PO DAILY for 5 Days, #5 TAB Prov:KATEY MEMBRENO DIRECTOR EMERGENCY SERVICES 01/07/25 Reported Medications Melatonin (KP MELATONIN) 3 Mg Tab, 10 MG PO, TAB 01/06/25 Pantoprazole Sodium Sesquihydr (Protonix) 40 Mg Tab, 40 MG PO DAILY, #30 TAB 01/06/25 Atorvastatin Calcium (ATORVASTATIN CALCIUM) 40 Mg Tab, 1 TAB PO DAILY, #30 TAB 5 Refills 01/06/25 Divalproex Sodium (Depakote) 500 Mg Tab, 1000 MG PO, TAB 01/06/25 Aripiprazole (Abilify) 2 Mg Tab, 10 MG PO, TAB 01/06/25 Information Source: Patient Mode of Arrival: Ambulatory Timing: Weeks, Months Duration: Intermittent Location of Back pain: (B) Cervical Radiates to: Anterior: Other (LEFT ARM) Radiates to: Posterior: Other (LEFT ARM) Radiates to: Medial: Other (LEFT ARM) Radiates to: Lateral: Other (LEFT ARM) Severity: Moderate Prehospital treatment: None Quality: Aching, Cramping Onset: Spontaneous History of: Chronic Back Pain, Other (CHRONIC NECK PAIN) Modifying Factors: Movement Associated signs and symptoms: None Past Medical History PAST MEDICAL HISTORY: Anemia, Anxiety, Cancer, CKF, COPD, Depression, DM, Gallstones, GERD, High Lipids, HTN, Liver, Schizophrenia Past Medical History (Other): CHRONIC NECK PAIN Surgical History (Other): CERVICAL FUSION Family History Family History: Reviewed,noncontributory to illness, No family hx of Cancer, No family hx of DM, No family hx of Heart anatoliy Social History Smoker: Cigarettes, Greater Than 1 Pack/Day Alcohol: Heavy Drugs: Marijuana Lives In: Home Constitutional: denies: chills, diaphoresis, fatigue, fever, malaise, sweats, weakness, others EENTM: denies: blurred vision, double vision, ear bleeding, ear discharge, ear drainage, ear pain, ear ringing, eye pain, eye redness, hearing loss, mouth pain, mouth swelling, nasal discharge, nose bleeding, nose congestion, nose pain, photophobia, tearing, throat pain, throat swelling, voice changes, others Respiratory: denies: cough, hemoptysis, orthopnea, SOB at rest, shortness of breath, SOB with excertion, stridor, wheezing, others Cardiovascular: denies: chest pain, dizzy spells, diaphoresis, Dyspnea on exertion, edema, irregular heart beat, left arm pain, lightheadedness, palpitations, PND, syncope, others Gastrointestinal: denies: abdomen distended, abdominal pain, blood streaked bowels, constipated, diarrhea, dysphagia, difficulty swallowing, hematemesis, melena, nausea, poor appetite, poor fluid intake, rectal bleeding, rectal pain, vomiting, others Genitourinary: denies: burning, dysuria, flank pain, frequency, hematuria, incontinence, penile discharge, penile sore, pain, testicle pain, testicle swelling, urgency, others Neurological: denies: dizziness, fainting, headache, left sided numbness, left sided weakness, numbness, paresthesia, pre-existing deficit, right sided n umbness, right sided weakness, seizure, speech problems, tingling, tremors, weakness, others Musculoskeletal: reports: back pain (LEFT UPPER BACK PAIN), muscle pain, neck pain; denies: gout, joint pain, joint swelling, muscle stiffness, others Integumetry: denies: bruises, change in color, change in hair/nails, dryness, laceration, lesions, lumps, rash, wounds, others Allergic/Immunocompromised: denies: Difficulty Healing, Frequent Infections, Hives, Itching, others Hematologic/Lymphatic: denies: anemia, blood clots, easy bleeding, easy bruising, swollen glands, others Endocrine: denies: excessive hunger, excessive sweating, excessive thirst, excessive urination, flushing, intolerance to cold, intolerance to heat, unexplained weight gain, unexplained weight loss, others Psychiatric: denies: anxiety, bipolar disorder, depression, hopeless, panic disorder, schizophrenia, sleepless, suicidal, others All Other Systems: Reviewed and Negative Physical Exam General Appearance: No Apparent Distress, Normal HEENT: Normal ENT Inspection, PERRL/EOMI, Pharynx Normal, TMs Normal Neck: Full Range of Motion, Normal Inspection, Supple, Tender Lateral (TENDERNESS AND MUSCLE SPASM ON POSTERIOR NECK, NO BONY TENDERNESS, SWELLING AND DEFORMITY. ) Respiratory: Lungs Clear, No Accessory Muscle Use, No Respiratory Distress, Normal Breath Sounds, Other (TENDERNESS ON LEFT UPPER CHEST WALL. ) Cardiovascular: No Edema, No JVD, No Murmur, No Gallop, Normal Peripheral Pulses, Regular Rate/Rhythm Breast Exam: Deferred Gastrointestinal: No Organomegaly, Non Tender, No Pulsatile Mass, Normal Bowel Sounds, Soft Genitalia: Deferred Pelvic: Deferred Rectal: Deferred Extremities: No calf tenderness, Normal capillary refill, Normal inspection, Normal range of motion, Non-tender, No pedal edema Musculoskeletal : Apperance: Normal Neurologic: Alert, ob/gyn physician II-XII nml as Tested, No Motor Deficits, Normal Affect, Normal Mood, No Sensory Deficits Cerebellar Function: Normal Reflexes: Normal Skin: Dry, Normal Color, Warm Peripheral Pulses: 2+ carotid (R), 2+ carotid (L) Lymphatic: No Adenopathy Was a procedure done? Was a procedure done?: No EKG EKG : Pulse Rate (adult): 68 [place]: Normal Cardiac Rhythm: NSR Block: None Hypertrophy: None ST: Normal Back Pain Differential Dx Differential Diagnosis: Musculoskeletal Pain Other Differential Diagnosis DDD, CERVICAL RADICULOPATHY, MUSCLE SPASM X-Ray, Labs, Meds, VS Vital Signs Date Time Temp Pulse Resp B/P (MAP) Pulse Ox O2 Delivery O2 Flow Rate FiO2 08/06/25 13:39 68 08/06/25 13:16 68 08/06/25 13:09 98.4 67 16 140/89 97 98.4 Lab Test 08/06/25 13:27 Range/Units White Blood Count 7.0 4.4-10.8 10^3/uL Red Blood Count 4.99 4.5-5.90 10^6/uL Hemoglobin 16.1 13.5-17.5 g/dL Hematocrit 46.1 41.0-53.0 % Mean Corpuscular Volume 92.4 80.0-100.0 fL Mean Corpuscular Hemoglobin 32.2 H 28.0-32.0 pg Mean Corpuscular Hemoglobin Concent 34.8 32.0-36.0 g/dL Red Cell Distribution Width 13.6 11.8-14.3 % Platelet Count 156 140-450 10^3/uL Mean Platelet Volume 8.0 6.9-10.8 fL Neutrophils (%) (Auto) 49.0 37.0-80.0 % Lymphocytes (%) (Auto) 41.1 10.0-50.0 % Monocytes (%) (Auto) 5.7 0.0-12.0 % Eosinophils (%) (Auto) 3.6 0.0-7.0 % Basophils (%) (Auto) 0.6 0.0-2.0 % Neutrophils # (Auto) 3.4 1.6-8.6 10 ^3/uL Lymphocytes # (Auto) 2.9 0.4-5.4 10 ^3/uL Monocytes # (Auto) 0.4 0-1.3 10 ^3/uL Eosinophils # (Auto) 0.2 0-0.8 10 ^3/uL Basophils # (Auto) 0 0-0.2 10 ^3/uL Nucleated Red Blood Cells 0.2 % Sodium Level 142 136-145 mmol/L Potassium Level 4.2 3.5-5.1 mmol/L Chloride Level 104 98-107 mmol/L Carbon Dioxide Level 31 20-31 mmol/L Anion Gap 7 5-15 Blood Urea Nitrogen 8 L 9-23 mg/dL Creatinine 1.10 0.700-1.30 mg/dL Glomerular Filtration Rate Calc 79 >90 mL/min BUN/Creatinine Ratio 7.3 L 10.0-20.0 Serum Glucose 94 74-106 mg/dL Calcium Level 9.3 8.7-10.4 mg/dL Troponin I High Sensitivity < 3 L </=54 ng/L Current Medications Medications (Trade) Dose Ordered Sig/Lili Route Start Time Stop Time Status Last Admin Acetaminophen/ Hydrocodone Bitart ([place] 10/325MG Tab) 1 tab ONCE ONCE PO 08/06/25 14:30 08/06/25 14:31 DC 08/06/25 14:25 INDICATION: NECK PAIN TO SHOULDERS COMPARISON: None TECHNIQUE: 4 views of the cervical spine were obtained. FINDINGS: Straightening of the cervical spine. Post-surgical spinal hardware in the cervical spine. The predental space is normal. No acute fracture, vertebral compression deformity or aggressive osseous lesions. The imaged lung apices are unremarkable. IMPRESSION: No acute fracture. Straightening of the cervical spine. Post-surgical spinal hardware in the cervical spine. ATED BY: RANDI JONES MD DICTATED DATE/TIME: 08/06/251426 SIGNED BY: RANDI JONES MD SIGNED DATE/TIME: 08/06/251426 CC: X-Ray, Labs, Meds, VS Comment EXTERNAL MEDICAL RECORDS REVIEWED: [NONE] INDEPENDENT HISTORIANS: [NONE] SOCIAL DETERMINANTS OF HEALTH: [NONE] LABS ORDERED: CBC, BMP, TROPONIN REVIEWED AND INTERPRETED RESULTS: NORMAL IMAGING ORDERED: XR C-SPINE TREATMENTS ORDERED: NORCO 10/325 MG P.O. PROCEDURES PERFORMED: NONE CRITICAL CARE TIME: NONE I HAVE DISCUSSED THE PATIENT WITH THE ATTENDING PHYSICIAN DR. BOYER AND HE AGREES WITH THE PATIENT'S PLAN OF CARE AND DISPOSITION. BASED ON HISTORY OF PRESENT ILLNESS, AND PHYSICAL EXAM, PATIENT WILL BE DISCHARGED HOME. DISCUSSED PLAN FOR DISCHARGE HOME WITH RX [ULTRAM AND PREDNISONE ]. MEDICATION WARNINGS GIVEN. SHARED DECISION MAKING: DISCUSSED WITH PATIENT THAT THEIR WORKUP WAS NORMAL. PATIENT INSTRUCTED TO FOLLOW UP WITH PRIMARY CARE PROVIDER IN 1-2 DAYS FOR RE- EVALUATION OF SYMPTOMS. PATIENT VERBALIZES UNDERSTANDING TO RETURN TO ED FOR NEW OR WORSENING SYMPTOMS OR IF FOLLOW UP WITH PCP CANNOT BE OBTAINED. PATIENT FEELS COMFORTABLE GOING HOME AT THIS TIME. ALL QUESTIONS ADDRESSED AT TIME OF DISCHARGE. Images Reviewed?: Images reviewed and evaluated by me Time of 1ST Reevaluation: 14:53 Reevaluation 1ST: Improved Patient Education/Counseling: Diagnosis, Treatment, Need For Follow Up Family Education/Counseling: Diagnosis, Treatment, Need For Follow Up SEPSIS Sepsis Screen Date sepsis recognized/suspect: Aug 06, 2025 Time Sepsis recognized/suspect: 1312 Recent Procedure: No On Antibiotic Therapy: No Respiratory Rate >20: No Heart Rate >90: No Temp<36 C (96.8 F) or >38.3 C: No SBP <90 or MAP <65 mmHG: No New Acute Mental Status Change: No Is the patient on CPAP, BIPAP,: No Physician Orders Electrocardigram (08/06/25 14:13) Electrocardigram (08/06/25 16:13) Cervical Spine 3v (08/06/25 13:33) Vital Signs Date Time Temp Pulse Resp B/P (MAP) Pulse Ox O2 Delivery O2 Flow Rate FiO2 08/06/25 13:39 68 08/06/25 13:16 68 08/06/25 13:09 98.4 67 16 140/89 97 98.4 Laboratory Tests Test 08/06/25 13:27 White Blood Count 7.0 10^3/uL (4.4-10.8) Medications Medications Dose Ordered Sig/Lili Route Start Time Stop Time Status Last Admin Dose Admin Acetaminophen/ Hydrocodone Bitart 1 tab ONCE ONCE PO 08/06/25 14:30 08/06/25 14:31 DC 08/06/25 14:25 Departure 1 Departure Time of Disposition: 15:00 Impression: Primary Impression: DDD (degenerative disc disease), cervical Additional Impression: Cervical radiculopathy Disposition: HOME / SELF CARE / HOMELESS Condition: Stable Additional Instructions: FOLLOW-UP WITH PCP IN 1 TO 2 DAYS FOR MRI STUDY. TAKE MEDICATIONS PRESCRIBED. RETURN TO ED FOR ANY NEW OR WORSENING SYMPTOMS. e-Prescriptions Prednisone (Prednisone) 20 Mg Tab 40 MG PO DAILY, #20 TAB Prov: LEATHA CLAYTON 08/06/25 Tramadol HCl (Tramadol HCl) 50 Mg Tab 50 MG PO TID, #24 TAB Prov: LEATHA CLAYTON 08/06/25 Discharged With: Self, Relative Critical Care Note Critical Care Time?: No Stability Stability form required: No I personally scribed for LEATHA CLAYTON ([email or web address]) on 08/06/25 at 13:38. Electronically submitted by Stephon Thopmson (Nanali). I personally scribed for LEATHA CLAYTON ([email or web address]) on 08/06/25 at 14:36. Electronically submitted by Stephon Thompson (Nanali). I personally scribed for LAETHA CLAYTON ([email or web address]) on 08/06/25 at 14:37. Electronically submitted by Stephon Thompson (Nanali). LEATHA CLAYTON Aug 06, 2025 13:38
[2025-08-06 13:49] LABS: Hematocrit 46.1 % (41.0-53.0); Hemoglobin 16.1 g/dL (13.5-17.5); Mean Corpuscular Hemoglobin 32.2 pg (28.0-32.0); Mean Corpuscular Volume 92.4 fL (80.0-100.0); Nucleated Red Blood Cells % 0.2 %
[2025-08-06 13:55] LABS: Chloride 104 mmol/L (98-107); Potassium 4.2 mmol/L (3.5-5.1); Sodium 142 mmol/L (136-145)
[2025-08-06 13:56] LABS: Anion Gap 7 (5-15); Carbon Dioxide 31 mmol/L (20-31)
[2025-08-06 13:57] LABS: Calcium 9.3 mg/dL (8.7-10.4)
[2025-08-06 14:01] LABS: Glucose 94 mg/dL (74-106)
[2025-08-06 14:02] LABS: BUN/Creatinine Ratio 7.3 (10.0-20.0); Blood Urea Nitrogen 8 mg/dL (9-23)
[2025-08-06] MEDS: HYDROcodone-ACET 10/325MG TAB PO ONE (14:25)
--- NOTE | 2025-08-06 14:30 | DVH ---
INDICATION: NECK PAIN TO SHOULDERS COMPARISON: None TECHNIQUE: 4 views of the cervical spine were obtained. FINDINGS: Straightening of the cervical spine. Post-surgical spinal hardware in the cervical spine. The predental space is normal. No acute fracture, vertebral compression deformity or aggressive osseous lesions. The imaged lung apices are unremarkable. IMPRESSION: No acute fracture. Straightening of the cervical spine. Post-surgical spinal hardware in the cervical spine.
[2025-08-06] MEDS ORDERED: PRED20TA2 PO (14:49)
[2025-08-06] MEDS ORDERED: TRAM-626 PO (14:49)
[2025-08-06 14:54] VITALS: BP 117/77; PULSE 59; RESP 16; O2SAT 97
== END 2025-08-06 15:00 | disposition home or self-care (01) ==
LOC: ER 13:06
DX: M51.369 Other intervertebral disc degeneration, lumbar region without mention of lumbar back pain or lower extremity pain (principal); M50.10 Cervical disc disorder with radiculopathy, unspecified cervical region; F41.9 Anxiety disorder, unspecified; G89.29 Other chronic pain; I10 Essential (primary) hypertension; J44.9 Chronic obstructive pulmonary disease, unspecified; F17.210 Nicotine dependence, cigarettes, uncomplicated; E11.9 Type 2 diabetes mellitus without complications; Z79.899 Other long term (current) drug therapy
CPT/HCPCS: 36415; 72040; 80048; 84484; 85025; 93005